=== PATIENT | female | born 1980 | race African-American/Black ===

== ENCOUNTER 2020-12-24 08:44 | Emergency (ER) | payer SELFPAY ==
[2020-12-24] MEDS ORDERED: Ibuprofen 200 MG TAB ONE (09:45)
== END 2020-12-24 10:15 | disposition home or self-care (01) ==
LOC: CSHERS 08:44
DX: S62.337A Displaced fracture of neck of fifth metacarpal bone, left hand, initial encounter for closed fracture (principal); X50.0XXA Overexertion from strenuous movement or load, initial encounter
CPT/HCPCS: 26600

== ENCOUNTER 2022-03-01 11:32 | Inpatient (IN) | payer SELFPAY ==
[2022-03-01 13:44] LABS: #Basophils 0.1 10x3/uL (0.0-0.2); #Eosinphils 0.1 10x3/uL (0.0-0.5); #Monocytes 0.4 10x3/uL (0.0-1.1); #Neutrophils 3.3 10x3/uL (1.5-8.4); %Basophils 0.9 % (0.0-2.0); %Eosinophils 2.4 % (0.0-6.0); %Lymphocytes 32.8 % (18.0-47.0); %Monocytes 6.9 % (0.0-10.0); %Neutrophils 56.7 % (40.0-75.0); Mean Corpuscular HGB CONC 34.5 g/dL (32.0-36.0); Mean Corpuscular Hemoglobin 31.8 pg (27.0-33.0); Mean Corpuscular Volume 92.2 fl (81.6-98.3); Mean Platelet Volume 9.7 fl (7.4-10.4); Platelet Count 441 10x3/uL (150-450); RBC Distribution Width 13.3 % (11.5-14.5); Red Blood Cell (RBC) Count 4.09 10x6/uL (3.90-5.03); White Blood Cell (WBC) Count 5.8 10x3/uL (3.5-10.5)
[2022-03-01 13:45] LABS: ALT (SGPT) 32 U/L (8-55); AST (SGOT) 15 U/L (5-34); Albumin 4.1 g/dL (3.5-5.0); Alkaline Phosphatase 77 U/L (40-110); Anion Gap 14 mmol/L (10-20); BUN (Urea Nitrogen) 10 mg/dL (7.0-18.7); Bilirubin, Total 0.3 mg/dL (0.2-1.2); Calc. Creatinine Clearance 0 mL/min (70-130); Calcium 9.6 mg/dL (7.8-10.44); Carbon Dioxide 25 mmol/L (22-29); Chloride 103 mmol/L (98-107); Globulin 4.2 g/dL (2.4-3.5); Glucose 84 mg/dL (70-105); Potassium 3.8 mmol/L (3.5-5.1); Protein, Total 8.3 g/dL (6.0-8.3); Sodium 138 mmol/L (136-145)
[2022-03-01] MEDS ORDERED: cefTRIAXone\\ROCEPHIN 2 GM VIAL ONE (14:50)
[2022-03-01] MEDS ORDERED: Acetaminophen 325 MG TAB PO PRN (15:21)
[2022-03-01] MEDS ORDERED: Senokot S 8.6-50 MG TAB PO PRN (15:21)
[2022-03-01] MEDS ORDERED: Ondansetron ODT 4 MG TAB PO PRN (15:21)
[2022-03-01] MEDS ORDERED: Ondansetron PF 4 MG/2 ML Vial IVP PRN (15:21)
[2022-03-01] MEDS: traMADol HCl 50 MG TAB PO PRN (18:11)
[2022-03-01] MEDS: Sodium Chloride 0.9% 1,000 ML IV SCH ×2 (18:15→21:32)
[2022-03-01] MEDS ORDERED: Vancomycin HCl 750 MG in Sodium Chloride 0.9% 250 ML 250 ML IVPB SCH ×2 (18:30→20:00)
[2022-03-01] MEDS ORDERED: Vancomycin 1 GM in Premix Bag 1 BAG IVPB SCH (21:00)
[2022-03-01] MEDS: Ketorolac Tromethamine 30 MG/ML VIAL IVP PRN (21:30)
[2022-03-01] MEDS: Enoxaparin Sodium 40 MG/0.4 ML SYRINGE SC SCH (21:30)
[2022-03-01] MEDS: Famotidine 20 MG TAB PO SCH (21:31)
[2022-03-02] MEDS: Ketorolac Tromethamine 30 MG/ML VIAL IVP PRN (03:03)
[2022-03-02 05:37] LABS: #Basophils 0.1 10x3/uL (0.0-0.2); #Eosinphils 0.2 10x3/uL (0.0-0.5); #Monocytes 0.4 10x3/uL (0.0-1.1); #Neutrophils 2.7 10x3/uL (1.5-8.4); %Basophils 1.1 % (0.0-2.0); %Eosinophils 4.3 % (0.0-6.0); %Lymphocytes 37.7 % (18.0-47.0); %Monocytes 7.1 % (0.0-10.0); %Neutrophils 49.4 % (40.0-75.0); Hemoglobin 11.6 g/dL (12.0-15.5); Mean Corpuscular HGB CONC 34.1 g/dL (32.0-36.0); Mean Corpuscular Hemoglobin 31.4 pg (27.0-33.0); Mean Corpuscular Volume 92.1 fl (81.6-98.3); Mean Platelet Volume 9.7 fl (7.4-10.4); Platelet Count 388 10x3/uL (150-450); RBC Distribution Width 13.6 % (11.5-14.5); Red Blood Cell (RBC) Count 3.69 10x6/uL (3.90-5.03); White Blood Cell (WBC) Count 5.4 10x3/uL (3.5-10.5)
[2022-03-02 05:58] LABS: Anion Gap 12 mmol/L (10-20); BUN (Urea Nitrogen) 14 mg/dL (7.0-18.7); Calc. Creatinine Clearance 155 mL/min (70-130); Carbon Dioxide 26 mmol/L (22-29); Chloride 105 mmol/L (98-107); Glucose 90 mg/dL (70-105); Sodium 139 mmol/L (136-145)
[2022-03-02] MEDS: Famotidine 20 MG TAB PO SCH ×2 (07:50→20:15)
[2022-03-02] MEDS: Vancomycin HCl 1.5 GM, Admixture Fee 1 EACH in Sodium Chloride 0.9% 500 ML IVPB SCH ×2 (07:50→20:15)
[2022-03-02] MEDS: traMADol HCl 50 MG TAB PO PRN ×2 (07:54→20:14)
[2022-03-02 14:00] VITALS: BMI 40.4
[2022-03-02] MEDS: cefTRIAXone\\ROCEPHIN 1 GM in Sodium Chloride 0.9% 100 ML IVPB SCH (17:03)
[2022-03-02] MEDS: Enoxaparin Sodium 40 MG/0.4 ML SYRINGE SC SCH (20:16)
[2022-03-02] MEDS: Sodium Chloride 0.9% 1,000 ML IV SCH (20:16)
[2022-03-03 05:10] LABS: #Basophils 0.1 10x3/uL (0.0-0.2); #Eosinphils 0.2 10x3/uL (0.0-0.5); #Monocytes 0.4 10x3/uL (0.0-1.1); #Neutrophils 3.7 10x3/uL (1.5-8.4); %Basophils 0.9 % (0.0-2.0); %Eosinophils 3.4 % (0.0-6.0); %Lymphocytes 34.7 % (18.0-47.0); %Monocytes 6.3 % (0.0-10.0); %Neutrophils 54.4 % (40.0-75.0); Hemoglobin 12.7 g/dL (12.0-15.5); Mean Corpuscular HGB CONC 34.4 g/dL (32.0-36.0); Mean Corpuscular Hemoglobin 31.4 pg (27.0-33.0); Mean Corpuscular Volume 91.3 fl (81.6-98.3); Mean Platelet Volume 9.6 fl (7.4-10.4); Platelet Count 425 10x3/uL (150-450); RBC Distribution Width 13.5 % (11.5-14.5); Red Blood Cell (RBC) Count 4.04 10x6/uL (3.90-5.03); White Blood Cell (WBC) Count 6.8 10x3/uL (3.5-10.5)
[2022-03-03 05:24] LABS: Anion Gap 14 mmol/L (10-20); BUN (Urea Nitrogen) 10 mg/dL (7.0-18.7); Calc. Creatinine Clearance 161 mL/min (70-130); Calcium 9.3 mg/dL (7.8-10.44); Carbon Dioxide 23 mmol/L (22-29); Chloride 105 mmol/L (98-107); Glucose 94 mg/dL (70-105); Potassium 4.1 mmol/L (3.5-5.1); Sodium 138 mmol/L (136-145)
[2022-03-03] MEDS: Famotidine 20 MG TAB PO SCH ×2 (08:34→20:07)
[2022-03-03] MEDS: Vancomycin HCl 1.5 GM, Admixture Fee 1 EACH in Sodium Chloride 0.9% 500 ML IVPB SCH ×2 (08:34→20:06)
[2022-03-03] MEDS: traMADol HCl 50 MG TAB PO PRN ×3 (08:37→20:07)
[2022-03-03] MEDS: Sodium Chloride 0.9% 1,000 ML IV SCH (10:05)
[2022-03-03] MEDS: cefTRIAXone\\ROCEPHIN 1 GM in Sodium Chloride 0.9% 100 ML IVPB SCH (16:05)
[2022-03-03] MEDS: Enoxaparin Sodium 40 MG/0.4 ML SYRINGE SC SCH (20:06)
[2022-03-04 05:00] LABS: #Eosinphils 0.3 10x3/uL (0.0-0.5); #Monocytes 0.4 10x3/uL (0.0-1.1); #Neutrophils 2.9 10x3/uL (1.5-8.4); %Basophils 0.5 % (0.0-2.0); %Eosinophils 5.1 % (0.0-6.0); %Lymphocytes 36.7 % (18.0-47.0); %Monocytes 6.5 % (0.0-10.0); Hemoglobin 11.7 g/dL (12.0-15.5); Mean Corpuscular HGB CONC 34.3 g/dL (32.0-36.0); Mean Corpuscular Hemoglobin 31.3 pg (27.0-33.0); Mean Corpuscular Volume 91.2 fl (81.6-98.3); Mean Platelet Volume 9.5 fl (7.4-10.4); Platelet Count 391 10x3/uL (150-450); RBC Distribution Width 13.6 % (11.5-14.5); Red Blood Cell (RBC) Count 3.74 10x6/uL (3.90-5.03); White Blood Cell (WBC) Count 5.7 10x3/uL (3.5-10.5)
[2022-03-04 05:20] LABS: Anion Gap 14 mmol/L (10-20); BUN (Urea Nitrogen) 11 mg/dL (7.0-18.7); Calc. Creatinine Clearance 174 mL/min (70-130); Calcium 8.7 mg/dL (7.8-10.44); Carbon Dioxide 22 mmol/L (22-29); Chloride 105 mmol/L (98-107); Glucose 82 mg/dL (70-105); Potassium 4.2 mmol/L (3.5-5.1); Sodium 137 mmol/L (136-145)
[2022-03-04] MEDS: Amlodipine 5 MG TAB PO SCH (08:51)
[2022-03-04] MEDS: Vancomycin HCl 1.5 GM, Admixture Fee 1 EACH in Sodium Chloride 0.9% 500 ML IVPB SCH ×2 (08:51→20:21)
[2022-03-04] MEDS: Famotidine 20 MG TAB PO SCH ×2 (08:51→20:20)
[2022-03-04] MEDS ORDERED: Lidocaine 2% Jelly 5 ML TUBE TOP SCH (10:45)
[2022-03-04] MEDS: traMADol HCl 50 MG TAB PO PRN ×2 (10:56→17:12)
[2022-03-04] MEDS ORDERED: Morphine 2 MG/ML VIAL SLOW IVP PRN (10:57)
[2022-03-04] MEDS ORDERED: diphenhydrAMINE 25 MG CAP PO PRN (11:10)
[2022-03-04] MEDS: cefTRIAXone\\ROCEPHIN 1 GM in Sodium Chloride 0.9% 100 ML IVPB SCH (16:14)
[2022-03-04] MEDS: Enoxaparin Sodium 40 MG/0.4 ML SYRINGE SC SCH (20:21)
[2022-03-05 07:04] LABS: Vancomycin, Trough 20.8 ug/mL
[2022-03-05] MEDS: Amlodipine 5 MG TAB PO SCH (09:38)
[2022-03-05] MEDS: Famotidine 20 MG TAB PO SCH (09:39)
[2022-03-05] MEDS: Vancomycin HCl 1.5 GM, Admixture Fee 1 EACH in Sodium Chloride 0.9% 500 ML IVPB SCH (10:05)
[2022-03-05 11:42] VITALS: BP 129/81; TEMP 98.7
[2022-03-05] MEDS: traMADol HCl 50 MG TAB PO PRN (11:57)
[2022-03-05] MEDS ORDERED: Vancomycin HCl 1 GM in Sodium Chloride 0.9% 250 ML 250 ML IVPB SCH (21:00)
[2022-03-05] MEDS ORDERED: Vancomycin 1 GM in Premix Bag 1 BAG IVPB SCH (21:00)
== END 2022-03-05 13:10 | disposition home or self-care (01) | DRG 572 ==
LOC: CSHERS 11:32 → CSHPP 17:37
PROVIDERS: ADMIT Internal Medicine; ATTEND Internal Medicine
PROC: 0JBP0ZZ Excision of Left Lower Leg Subcutaneous Tissue and Fascia, Open Approach (ICD-10-PCS; principal; 2022-03-04)
DX: L03.115 Cellulitis of right lower limb (principal); I10 Essential (primary) hypertension; H91.3 Deaf nonspeaking, not elsewhere classified; S81.802A Unspecified open wound, left lower leg, initial encounter; K59.00 Constipation, unspecified; Z20.822 Contact with and (suspected) exposure to COVID-19; Z79.891 Long term (current) use of opiate analgesic; Z79.899 Other long term (current) drug therapy; Z84.1 Family history of disorders of kidney and ureter
CPT/HCPCS: 36415; 80048; 80053; 80202; 83605; 85025; 87040; 87070; 87205; 94760; 96365; 96366; 96367; J0696; J1650; J1885; J2270; J3370; J3490; J7030; J7050; U0003; U0005

== ENCOUNTER 2022-03-09 08:17 | Outpatient (CLI) | payer OTHER | END 2022-03-09 08:18 | disposition home or self-care (01) | LOC: CSHWCC 08:17 | PROVIDERS: ATTEND Nurse Practitioner Family | DX: I87.312 Chronic venous hypertension (idiopathic) with ulcer of left lower extremity (principal); L97.822 Non-pressure chronic ulcer of other part of left lower leg with fat layer exposed; R60.0 Localized edema | CPT/HCPCS: 11042; 99203; G0463 ==

== ENCOUNTER 2022-03-23 10:03 | Outpatient (CLI) | payer SELFPAY | END 2022-03-23 10:04 | disposition home or self-care (01) | LOC: CSHWCC 10:03 | PROVIDERS: ATTEND Nurse Practitioner Family | DX: I87.312 Chronic venous hypertension (idiopathic) with ulcer of left lower extremity (principal); L97.822 Non-pressure chronic ulcer of other part of left lower leg with fat layer exposed; R60.0 Localized edema ==